=== PATIENT | female | born 1940 | race Caucasian/White ===

== ENCOUNTER → 2017-03-25 | Outpatient (CLI) | payer OTHER ==
[~2017-03-25] MED LIST: ALTACE5 M1 PO; AMBIEN10 MG PO; BETA CAROT10000 UNIT PO; CALCIUM500 MG PO; COENZYME Q10; DEMEROL PO; FISH OIL 1,0001 CAP PO; FLAXSEED OIL1000 M1 PO; KLONOPIN1 MG PO; KRILL OIL 1,001 EACH PO; LOMOTIL TABLET1 TAB PO; LUTEIN10 MG PO; MICRO-K10 MEQ PO; NEXIUM PO; NUMOISYN300 ML MM; PANTOPRAZOLE SO40 MG PO; PRAVASTATIN SOD40 MG PO; REQUIP0.25 MG PO; SYNTHROID75 MCG PO; TRIAMTERENE-HC1 EACH PO; VITAMIN B; VITAMIN B12 DAILY; VITAMIN C OTC; VITAMIN C500 M1 PO; VITAMIN D1000 UNIT PO; VITAMIN E400 UNI1 PO; ZOLOFT50 MG PO
--- NOTE | ~2017-03-25 | MY11 ---
[facility] A Service of [facility] RADIOLOGY TEXT RESULTS PATIENT: HAMLET ELIZONDO LOCATION: [facility] : 40 UNIT #: [id number] AGE: [address]: Matt Mathews MD SEX: F ORDER DR: [id number] [facility] [address] [place], [place] [address] [id number] O MR#: [id number] Acc #: [id number] NAME: HAMLET ELIZONDO : 1940 SEX: F STUDY DATE/TIME: 03/25/2017 15:02 UNIT: [facility] ROOM: STUDY DESCRIPTION: MY Mammogram Screening Dig Jonel Attending Physician: Matt Mathews M.D. Referring Physician: Matt Mathews M.D. Ordering Physician: Matt Mathews M.D. Primary Care Physician: Matt Mathews M.D. MEDICAL IMAGING REPORT This report is preliminary unless electronic signature is present EXAM Bilateral digital screening mammogram with CAD. COMPARISON February 29, 2016, November 07, 2014, November 02, 2013, October 26, 2012, October 15, 2011, October 09, 2010, September 21, 2010, September 13, 2010, and June 13, 2006. INDICATIONS Breast cancer screening. 77-year-old asymptomatic female with a history of left breast cancer diagnosed at age 69, treated with lumpectomy and radiation. FINDINGS There is scattered fibroglandular densities. There is stable postsurgical and postradiation change of the left breast. There are no suspicious findings in either breast. IMPRESSION No mammographic evidence of malignancy. Continued annual screening mammography and clinical breast exam are recommended. Patients over the age of 40 are entered into a reminder system with target due date for the next mammogram. A result letter will also be sent to the patient. BIRADS: 2 Benign findings. Dictated by... Nj Hammond M.D. [facility] A Service of [facility] RADIOLOGY TEXT RESULTS PATIENT: HAMLET ELIZONDO LOCATION: [facility] : 40 UNIT #: [id number] AGE: [address]: Matt Mathews MD SEX: F ORDER DR: THIS IS AN ELECTRONICALLY VERIFIED REPORT Nj Hammond M.D. at 03/28/2017 2:54 PM EDUARDO/lizzie TD: 03/25/2017 18:09 JOB #: [id number] MEDICAL IMAGING REPORT Page 1 of 1 COPY
== END | disposition home or self-care (01) ==
LOC: CWCC 14:51
DX: Z12.31 Encounter for screening mammogram for malignant neoplasm of breast (principal); Z85.3 Personal history of malignant neoplasm of breast; Z98.890 Other specified postprocedural states
CPT/HCPCS: G0202